=== PATIENT | female | born 1990 | race Caucasian/White ===

== ENCOUNTER → 2020-06-02 | Outpatient (REF) | LOC: M LABSMTC 12:18 | PROVIDERS: ATTEND Pediatrics | DX: Z11.52 Encounter for screening for COVID-19 (principal) ==

== ENCOUNTER → 2020-06-05 | Outpatient (REF) | LOC: M LABSMTC 11:36 | PROVIDERS: ATTEND Pediatrics | DX: Z20.822 Contact with and (suspected) exposure to COVID-19 (principal) ==